=== PATIENT | male | born 1965 | race Caucasian/White ===

== ENCOUNTER 2020-09-11 19:30 | Emergency (ER) | payer MEDICAID ==
[~2020-09-11] VITALS: Ht 188 cm; Wt 131.3 kg
[2020-09-11 18:28] VITALS: BP 118/65
--- NOTE | 2020-09-11 18:56 | NUR ---
REPORT RECIEVED FROM LEONOR TORRES
--- NOTE | 2020-09-11 19:02 | NUR ---
WOUND IRRIGATED BY RAJAT HILTON AT [facility]
[~2020-09-11 19:30] MED LIST: BACITRACIN ZINC OINT 500U/GM, 0.9 GM ONE; DIPH,PERTUSS(ACELL),TET VAC/PF 0.5 ML IM-VACC ONE; LIDOCAINE-MPF 1%, 2ML ONE; LIDOCAINE-MPF 1%, 5ML INFIL ONE; NEOSPORIN OINT. PKT 1 PACKET ONE
== END 2020-09-11 19:36 ==
LOC: ED 19:30
DX: S61.213A Laceration without foreign body of left middle finger without damage to nail, initial encounter (principal); I10 Essential (primary) hypertension; E78.5 Hyperlipidemia, unspecified; X58.XXXA Exposure to other specified factors, initial encounter; Y93.89 Activity, other specified; Y92.009 Unspecified place in unspecified non-institutional (private) residence as the place of occurrence of the external cause; Y99.8 Other external cause status
CPT/HCPCS: 12042; 90471; 90715